=== PATIENT | male | born 1960 | race Caucasian/White ===

== ENCOUNTER → 2019-12-05 | Outpatient (CLI) | payer BC, OTHER ==
[~2019-12-05] MED LIST: METHACHOLINE KIT (J7674) INH ONE
--- NOTE | 2019-12-05 11:30 | PFTRPT ---
Visit Date: 12/05/2019 Referring Doctor: VENANCIO Concepcion Marcus, M Height: 72.50 Inches Weight: 205.00 Lbs BSA: 2.16 Diagnosis: R06.00 Study of excellent technical quality. Under protocol, methacholine was administered. Even after a maximal dose of 25 mg (188.875 CDUs), no provocation dose was ever achieved. IMPRESSION: Negative methacholine challenge study. MTDD
== END ==
LOC: M CARPUL 10:14
PROVIDERS: ATTEND Physician Assistant
DX: R06.00 Dyspnea, unspecified (principal)
CPT/HCPCS: 94070; J7674